=== PATIENT | male | born 1990 | race Two or more races ===

== ENCOUNTER 2019-02-11 04:30 | Emergency (ER) | payer SELFPAY ==
[~2019-02-11] VITALS: Ht 167.6 cm; Wt 78.8 kg
[2019-02-11 04:32] VITALS: BP 134/84
--- NOTE | 2019-02-11 04:59 | NUR ---
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 PT LEFT.
== END 2019-02-11 05:02 | disposition left against medical advice (07) ==
LOC: ED 04:56
DX: M79.641 Pain in right hand (principal); Z53.21 Procedure and treatment not carried out due to patient leaving prior to being seen by health care provider

== ENCOUNTER 2019-08-25 17:39 | Emergency (ER) | payer OTHER ==
[2019-08-25 17:42] VITALS: BP 122/71
[2019-08-25 18:21] LABS: RAPID INFLUENZA A Negative (Negative); RAPID INFLUENZA B Negative (Negative)
== END 2019-08-25 18:38 | disposition home or self-care (01) ==
LOC: ED 18:17
DX: J11.1 Influenza due to unidentified influenza virus with other respiratory manifestations (principal); Z72.89 Other problems related to lifestyle; Z87.891 Personal history of nicotine dependence
CPT/HCPCS: 87400; 99283

== ENCOUNTER 2020-07-16 08:53 | Emergency (ER) | payer MEDICAID, OTHER ==
[~2020-07-16] VITALS: Ht 167.6 cm; Wt 85.0 kg
--- NOTE | 2020-07-16 09:09 | NUR ---
"I HAD A LITTLE SLIP IN THE SHOWER THE LOWER BACK HURTS AND I HEARD A POP" HAPPENED THIS AM. Ambulatory w/out difficulty No assessed or reported neurological abnormalities
[2020-07-16] MEDS ORDERED: CYCLOBENZAPRINE 10 MG TABLET ONE (09:13)
[2020-07-16] MEDS ORDERED: ONDANSETRON ODT 4 MG ONE (09:14)
[2020-07-16] MEDS ORDERED: HYDROcodone/APAP 5/325 TABLET ONE (09:14)
[2020-07-16] MEDS ORDERED: KETOROLAC 30 MG/1 ML ONE (09:17)
--- NOTE | 2020-07-16 09:20 | NUR ---
BREAK RN: MEDICATED PER ORDERS FOR PAIN, PT VERBALIZED NO OTHER NEEDS AT THIS TIME.
[2020-07-16] MEDS ORDERED: ONDANSETRON ODT 4 MG PO ONE (09:30)
[2020-07-16] MEDS ORDERED: HYDROcodone/APAP 5/325 TABLET PO ONE (09:30)
[2020-07-16] MEDS ORDERED: CYCLOBENZAPRINE 10 MG TABLET PO ONE (09:30)
[2020-07-16] MEDS ORDERED: KETOROLAC 30 MG/1 ML IM ONE (09:30)
--- NOTE | 2020-07-16 09:50 | NUR ---
With reassesment pain imroved to 11/05 "i feel much better. i can move much easier."
[2020-07-16 09:55] VITALS: BP 149/70
== END 2020-07-16 10:03 | disposition home or self-care (01) ==
LOC: ED 09:47
DX: S39.012A Strain of muscle, fascia and tendon of lower back, initial encounter (principal); Z87.891 Personal history of nicotine dependence; X58.XXXA Exposure to other specified factors, initial encounter; Y93.89 Activity, other specified; Y92.89 Other specified places as the place of occurrence of the external cause; Y99.8 Other external cause status
CPT/HCPCS: 72110; 96372; 99284; J1885; Q0162